=== PATIENT | female | born 1980 | race Two or more races ===

== ENCOUNTER 2016-08-17 15:31 | Emergency (ER) | payer OTHER, MEDICAID ==
[~2016-08-17] VITALS: Ht 162.6 cm; Wt 53.5 kg
[2016-08-17 16:20] VITALS: BP 107/71
== END 2016-08-17 18:01 | disposition home or self-care (01) ==
LOC: ER 15:35
DX: O46.92 Antepartum hemorrhage, unspecified, second trimester (principal); O30.002 Twin pregnancy, unspecified number of placenta and unspecified number of amniotic sacs, second trimester; E89.0 Postprocedural hypothyroidism; Z3A.19 19 weeks gestation of pregnancy; Z88.0 Allergy status to penicillin
CPT/HCPCS: 36415; 76805; 84702

== ENCOUNTER 2016-08-17 21:00 | Emergency (ER) | payer OTHER, MEDICAID ==
[~2016-08-17] VITALS: Ht 162.6 cm; Wt 53.5 kg
[2016-08-17 21:33] VITALS: BP 132/81
== END 2016-08-18 00:52 | disposition left against medical advice (07) ==
LOC: ER 21:00
DX: O26.892 Other specified pregnancy related conditions, second trimester (principal); R10.9 Unspecified abdominal pain; M54.2 Cervicalgia; Z53.21 Procedure and treatment not carried out due to patient leaving prior to being seen by health care provider; V43.52XA Car driver injured in collision with other type car in traffic accident, initial encounter; Y93.89 Activity, other specified; Y92.89 Other specified places as the place of occurrence of the external cause; Y99.8 Other external cause status; Z3A.19 19 weeks gestation of pregnancy

== ENCOUNTER 2016-12-16 13:45 | Observation (INO) | payer OTHER, MEDICAID ==
[~2016-12-16] VITALS: Ht 30.5 cm; Wt 0.5 kg
[2016-12-16] MEDS ORDERED: PREN1TAB30 PO (14:36)
[2016-12-16] MEDS ORDERED: FERR-7 PO (14:36)
[2016-12-16] MEDS ORDERED: NIFEdipine 10 MG CAP PO ONE (17:15)
== END 2016-12-16 17:05 | disposition home or self-care (01) | DRG 782 ==
LOC: LDRP 13:45
PROVIDERS: ADMIT Specialist; ATTEND Specialist
DX: O46.93 Antepartum hemorrhage, unspecified, third trimester (principal); O30.93 Multiple gestation, unspecified, third trimester; Z3A.35 35 weeks gestation of pregnancy; O62.9 Abnormality of forces of labor, unspecified
CPT/HCPCS: 59025; 76818; 80307; 81002; G0378

== ENCOUNTER 2018-09-20 12:25 | Observation (INO) | payer OTHER, MEDICAID ==
[~2018-09-20 12:25] MED LIST: FERR-7 PO; PREN1TAB30 PO
== END 2018-09-20 14:50 | disposition home or self-care (01) | DRG 833 ==
LOC: LDRP 12:25
PROVIDERS: ADMIT Obstetrics & Gynecology; ATTEND Obstetrics & Gynecology
DX: O36.8130 Decreased fetal movements, third trimester, not applicable or unspecified (principal); O99.89 Other specified diseases and conditions complicating pregnancy, childbirth and the puerperium; M54.5 Low back pain; O62.9 Abnormality of forces of labor, unspecified; Z3A.35 35 weeks gestation of pregnancy
CPT/HCPCS: 59025; 76815; 81002; G0378

== ENCOUNTER → 2019-08-03 | Emergency (ER) | payer MEDICARE, MEDICAID ==
[~2019-08-03] MED LIST changes: +SODIUM CHLORIDE 0.9% 1,000 ML IV ONE
[2019-08-03 03:32] LABS: Basophils # (auto) 0.1 10 ^3/uL (0-0.2); Basophils % (auto) 0.5 % (0.0-2.0); Eosinophils # (auto) 0.1 10 ^3/uL (0-0.8); Eosinophils % (auto) 0.6 % (0.0-7.0); Hematocrit 38.8 % (36.0-46.0); Hemoglobin 13.2 g/dL (12.2-16.2); Lymphocytes % (auto) 14.9 % (10.0-50.0); Mean Corpuscular Hemoglobin 30.4 pg (28.0-32.0); Mean Corpuscular Volume 89.4 fL (80.0-100.0); Monocytes # (auto) 0.7 10 ^3/uL (0-1.3); Monocytes % (auto) 5.4 % (0.0-12.0); Neutrophils # (auto) 10.8 10 ^3/uL (1.6-8.6); Neutrophils % (auto) 78.6 % (37.0-80.0); Platelet Count (auto) 362 10^3/uL (140-450); Red Blood Cells 4.34 10^6/uL (4.0-5.20); Red Cell Distribution Width 13.3 % (11.8-14.3); White Blood Cell 13.8 10^3/uL (4.4-10.8)
[2019-08-03 03:41] LABS: Alanine Aminotransferase 26 U/L (13-56); Albumin 3.5 g/dL (3.4-5.0); Anion Gap 8 (5-15); Aspartate Aminotransferase 15 U/L (15-37); BUN/Creatinine Ratio 10.7; Blood Urea Nitrogen 6 mg/dL (7-18); Calcium 8.7 mg/dL (8.5-10.1); Carbon Dioxide 24 mmol/L (21-32); Chloride 104 mmol/L (98-107); GFR African American 155 mL/min; GFR Non-African American 128 mL/min; Glucose 100 mg/dL (74-106); Potassium 3.4 mmol/L (3.5-5.1); Sodium 136 mmol/L (136-145)
[2019-08-03 03:46] LABS: Alkaline Phosphatase 53 U/L (45-117); Bilirubin, Total 0.7 mg/dL (0.2-1.0); Total Protein 7.5 g/dL (6.4-8.2)
[2019-08-03 03:54] LABS: INR 0.99 (0.9-1.15); Partial Thromboplastin Time 25.8 sec (23.64-32.05)
[2019-08-03 05:06] LABS: Urine Bacteria FEW /hpf (None Seen); Urine Blood Negative /uL (Negative); Urine Specific Gravity 1.004 (1.001-1.035); Urine WBC <1 /hpf (0 - 5)
[2019-08-03 05:30] VITALS: BP 102/58
== END | disposition home or self-care (01) ==
LOC: ER 02:39
DX: O26.891 Other specified pregnancy related conditions, first trimester (principal); R06.02 Shortness of breath; R50.9 Fever, unspecified; R05 Cough; Z20.828 Contact with and (suspected) exposure to other viral communicable diseases; Z3A.13 13 weeks gestation of pregnancy
CPT/HCPCS: 36415; 71045; 80053; 81001; 83735; 83880; 84484; 85025; 85379; 85610; 85730; 87070; 87635; 87804; 87880; 99001; 99285; J7030

== ENCOUNTER 2019-08-16 22:48 | Emergency (ER) | payer MEDICARE, MEDICAID ==
[~2019-08-16] VITALS: Ht 167.6 cm; Wt 57.2 kg
[~2019-08-16 22:48] MED LIST changes: -SODIUM CHLORIDE 0.9% 1,000 ML IV ONE
[2019-08-16 23:46] VITALS: BP 137/88
[2019-08-17 00:18] LABS: Basophils # (auto) 0.1 10 ^3/uL (0-0.2); Basophils % (auto) 0.6 % (0.0-2.0); Eosinophils # (auto) 0.1 10 ^3/uL (0-0.8); Eosinophils % (auto) 0.7 % (0.0-7.0); Hematocrit 39.4 % (36.0-46.0); Hemoglobin 13.2 g/dL (12.2-16.2); Lymphocytes # (auto) 2.1 10 ^3/uL (0.4-5.4); Lymphocytes % (auto) 17.5 % (10.0-50.0); Mean Corpuscular Hemoglobin 30.2 pg (28.0-32.0); Mean Corpuscular Hgb Conc. 33.4 g/dL (32.0-36.0); Mean Corpuscular Volume 90.3 fL (80.0-100.0); Monocytes # (auto) 0.7 10 ^3/uL (0-1.3); Monocytes % (auto) 5.5 % (0.0-12.0); Neutrophils % (auto) 75.7 % (37.0-80.0); Nucleated Red Blood Cells % 0.1 %; Platelet Count (auto) 392 10^3/uL (140-450); Red Blood Cells 4.36 10^6/uL (4.0-5.20); Red Cell Distribution Width 13.5 % (11.8-14.3); White Blood Cell 11.9 10^3/uL (4.4-10.8)
[2019-08-17 00:33] LABS: Albumin 3.5 g/dL (3.4-5.0); BUN/Creatinine Ratio 8.6; Calcium 8.9 mg/dL (8.5-10.1); Potassium 3.6 mmol/L (3.5-5.1)
[2019-08-17 00:36] LABS: Bilirubin, Total 0.9 mg/dL (0.2-1.0); Total Protein 7.9 g/dL (6.4-8.2)
[2019-08-17] MEDS ORDERED: SODIUM CHLORIDE 0.9% 1,000 ML IV ONE (02:15)
[2019-08-17] MEDS ORDERED: ACETAMINOPHEN 650 mg PER 20 mL UD PO ONE (03:15)
== END 2019-08-17 04:36 | disposition home or self-care (01) ==
LOC: ER 22:49
DX: O26.892 Other specified pregnancy related conditions, second trimester (principal); E86.0 Dehydration; Z88.0 Allergy status to penicillin; Z91.010 Allergy to peanuts; Z3A.15 15 weeks gestation of pregnancy
CPT/HCPCS: 36415; 80053; 81002; 81025; 85025; 96360; 96361; 99283; J7030

== ENCOUNTER 2019-08-23 11:12 | Emergency (ER) | payer MEDICARE, MEDICAID ==
[~2019-08-23] VITALS: Ht 162.6 cm; Wt 57.2 kg
[2019-08-23] MEDS ORDERED: SODIUM CHLORIDE 0.9% 1,000 ML IV ONE (11:20)
[2019-08-23] MEDS ORDERED: ONDANSETRON HCL 4 MG/2 ML VIAL IV ONE (11:30)
[2019-08-23 12:00] VITALS: BP 130/80
[2019-08-23 12:03] LABS: Basophils # (auto) 0 10 ^3/uL (0-0.2); Basophils % (auto) 0.4 % (0.0-2.0); Eosinophils # (auto) 0.1 10 ^3/uL (0-0.8); Eosinophils % (auto) 0.6 % (0.0-7.0); Hematocrit 39.1 % (36.0-46.0); Hemoglobin 13.1 g/dL (12.2-16.2); Lymphocytes # (auto) 1.3 10 ^3/uL (0.4-5.4); Lymphocytes % (auto) 11.7 % (10.0-50.0); Mean Corpuscular Hemoglobin 30.4 pg (28.0-32.0); Mean Corpuscular Hgb Conc. 33.4 g/dL (32.0-36.0); Mean Corpuscular Volume 90.9 fL (80.0-100.0); Monocytes # (auto) 0.5 10 ^3/uL (0-1.3); Monocytes % (auto) 4.7 % (0.0-12.0); Neutrophils % (auto) 82.6 % (37.0-80.0); Nucleated Red Blood Cells % 0.1 %; Platelet Count (auto) 373 10^3/uL (140-450); Red Cell Distribution Width 14.1 % (11.8-14.3); White Blood Cell 10.9 10^3/uL (4.4-10.8)
[2019-08-23 12:11] LABS: Albumin 3.4 g/dL (3.4-5.0); Calcium 8.9 mg/dL (8.5-10.1); Potassium 3.7 mmol/L (3.5-5.1)
[2019-08-23 12:20] LABS: BUN/Creatinine Ratio 5.7; Bilirubin, Total 0.8 mg/dL (0.2-1.0); Total Protein 7.4 g/dL (6.4-8.2)
[2019-08-23 12:29] LABS: Urine WBC None Seen /hpf (0 - 5)
[2019-08-23 12:39] LABS: Urine Bacteria FEW /hpf (None Seen); Urine Blood Negative /uL (Negative); Urine Specific Gravity 1.004 (1.001-1.035)
== END 2019-08-23 14:49 | disposition home or self-care (01) ==
LOC: ER 11:12 → EDBD 11:12 → ER 14:49
DX: O99.512 Diseases of the respiratory system complicating pregnancy, second trimester (principal); J06.9 Acute upper respiratory infection, unspecified; Z79.899 Other long term (current) drug therapy; Z88.8 Allergy status to other drugs, medicaments and biological substances; Z91.010 Allergy to peanuts; Z91.018 Allergy to other foods; Z3A.16 16 weeks gestation of pregnancy
CPT/HCPCS: 36415; 71045; 80053; 81001; 82010; 85025; 93005; 96360; 96361

== ENCOUNTER 2020-02-01 18:54 | Observation (INO) | payer MEDICARE, MEDICAID ==
[2020-02-01 21:21] LABS: Alcohol, Urine < 3.0 mg/dL (0-10); Amphetamine Screen, Urine NEGATIVE (NEGATIVE); Barbiturate Scree,Urine NEGATIVE (NEGATIVE); Benzodiazephine Screen, Urine NEGATIVE (NEGATIVE); Cannabinoid Screen, Urine NEGATIVE (NEGATIVE); Cocaine Screen, Urine NEGATIVE (NEGATIVE); Opiate Scree,Urine NEGATIVE (NEGATIVE); Phencyclidine Screen, Urine NEGATIVE (NEGATIVE)
== END 2020-02-01 21:49 | disposition home or self-care (01) ==
LOC: LDRP 18:54
PROVIDERS: ADMIT Obstetrics & Gynecology; ATTEND Obstetrics & Gynecology
DX: O62.9 Abnormality of forces of labor, unspecified (principal); O26.853 Spotting complicating pregnancy, third trimester; Z79.899 Other long term (current) drug therapy; Z3A.39 39 weeks gestation of pregnancy
CPT/HCPCS: 59025; 76805; 80307; 81002; G0378